=== PATIENT | female | born 1995 | race Caucasian/White ===

== ENCOUNTER 2025-04-22 13:02 | Emergency (ER) | payer MEDICAID ==
[~2025-04-22] VITALS: Ht 160 cm; Wt 54.5 kg
--- NOTE | 2025-04-22 13:12 | Physician Documentation ---
History of Present Illness Stated Complaint: VOMITING BLOOD HPI 29-year-old female and a moderate amount of distress with acute onset today in this morning abdominal pain. Initially right upper quadrant pain no pointing for the left upper quadrant and epigastric region. Endorses nausea and vomiting. No constipation or diarrhea last bowel movement yesterday periods no abdominal history of surgeries. Patient reports daily marijuana use Day of Onset: Apr 22, 2025 Medication Reconciliation Allergies: Coded Allergies: No Known Allergies (Unverified , 04/22/25) Scheduled Capsaicin 60GM Cream* (Zostrix Cream*), 1 APPLIC TOP Q12H Scheduled PRN Prochlorperazine Maleate (Compazine), 1 TAB PO QID PRN PRN for nausea Review of Systems All Other Systems at this time: Reviewed and Negative ROS As stated above in the HPI, otherwise all systems are reviewed and negative. Physical Exam Physical Exam General: Alert, no apparent distress. Respiratory: Lungs clear, no respiratory distress. Cardiovascular: Regular rate and rhythm, no murmurs. Gastrointestinal: Soft, nontender, nondistended. Bowels sounds present. Neurologic: Oriented x4. Psychiatric: Normal mood and affect. Skin: Normal color, warm and dry. No edema, no ecchymosis. General Appearance: alert, WD/WN, moderate distress Gastrointestinal: tenderness, rebound, guarding Gastrointestinal Epigastric and left upper quadrant pain with light palpation Medical Decision Making Findings After receiving medications patient has stopped vomiting. Interviewed her and she states that she is ready to go home. I advised her to stop smoking marijuana as this likely contributed to her presentation today per Differential Dx:Considerations: Include: AAA, -Complete, - Incomplete, -Inevitable, -Missed, -Threatened, Abruptio placentae, Angina/FL, Aortic dissection, Appendicitis, Bowel obstruction, Cholangitis, Cholelithasis, Constipation, Diverticular disease, Esophageal rupture, Esophagitis, Gastritis/PUD, Gastroenteritis, GI hemorrhage, Hernia, Hepatitis, Inflammatory BD, Ischemic bowel, Ovarian cyst/torsion, Pancreatitis, PID, Porphyria, Trauma, intraabdominal, Urinary obstruction, Urinary tract infection, Urolithiasis, Other Departure Disposition: HOME / SELF CARE / HOMELESS Impression: Primary Impression: Vomiting Additional Impression: Cannabis abuse Condition: Improved Discharge Instructions: Cyclic Vomiting Syndrome, Adult Referrals: NO PRIMARY CARE PROVIDER (PCP) Prescriptions Prochlorperazine Maleate (Compazine) 10 Mg Tablet 1 TAB PO QID PRN PRN for nausea, #12 TAB Prov: CARMEN CAAL [employer] LAY OUT ENGINEER 04/22/25 Capsaicin 60GM Cream* (Zostrix Cream*) 60 Gm Cream.gm. 1 APPLIC TOP Q12H for 30 Days, #60 GM Prov: CARMEN CAAL [employer] LAY OUT ENGINEER 04/22/25 Education Educated: Patient Educated regarding: diagnosis Signature Scribe Signature: hy Attestation: Scribed for Carmen Caal Tool Crib Supervisor by Carmen Caal - DANYA . 04/22/25 23:19 LORRIE URRUTIA NP Apr 22, 2025 13:12 CARMEN CAAL NP Apr 22, 2025 14:27 IZABEL VALENET MD Apr 27, 2025 15:03
[2025-04-22] MEDS ORDERED: LORazepam 2 mg/ml vial IV ONE (13:30)
[2025-04-22 13:39] LABS: BASOPHILS # (AUTO) 0.1 X10'3 (0-0.2); BASOPHILS % (AUTO) 0.7 % (0-1); EOSINOPHILS % (AUTO) 0 % (0-6); HEMATOCRIT 40.8 % (35.0-45.0); HEMOGLOBIN 13.7 g/dl (12.0-16.0); LYMPHOCYTES # (AUTO) 1.5 X10'3 (1.1-4.8); MEAN CORPUSCULAR HEMOGLOBIN 30.1 PG (27.0-31.0); MEAN CORPUSCULAR HGB CONC 33.5 g/dL (33.0-36.5); MEAN CORPUSCULAR VOLUME 89.9 FL (78-98); MEAN PLATELET VOLUME 11.2 FL (7.4-10.4); MONOCYTES # (AUTO) 0.6 X10'3 (0-0.9); MONOCYTES % (AUTO) 4.5 % (2-12); NEUTROPHILS # (AUTO) 11.5 X10'3 (1.8-7.7); NEUTROPHILS % (AUTO) 83.8 % (42-75); PLATELET COUNT 209 X10'3 (140-440); RED BLOOD COUNT 4.54 X10'6 (4.20-5.60); RED CELL DISTRIBUTION WIDTH 13.5 % (11.5-14.5); WHITE BLOOD COUNT 13.7 X10'3 (4.5-11.0)
[2025-04-22 13:47] LABS: ALANINE AMINOTRANSFERASE 33 U/L (12-78); ALBUMIN 4.7 G/DL (3.4-5.0); ALBUMIN/GLOBULIN RATIO 1.3 (1.1-1.5); ALKALINE PHOSPHATASE 48 IU/L (46-116); AMYLASE 45 U/L (25-115); ANION GAP 11 (8-16); ASPARTATE AMINO TRANSFERASE 22 U/L (10-37); BILIRUBIN,TOTAL 0.4 MG/DL (0.1-1.0); BLOOD UREA NITROGEN 17 MG/DL (7-18); BUN/CREATININE RATIO 27.4 (10.0-20.0); CALCIUM 9.2 MG/DL (8.5-10.1); CHLORIDE 103 MMOL/L (99-107); CREATININE 0.62 MG/DL (0.40-0.90); GLUCOSE 108 MG/DL (70-104); LIPASE 20 U/L (16-77); POTASSIUM 4.1 MMOL/L (3.5-5.1); SODIUM 140 MMOL/L (135-145); TOTAL CARBON DIOXIDE 25.7 MMOL/L (24-32); TOTAL PROTEIN 8.2 G/DL (6.4-8.2); eCRCL 112 ML/MIN; eGFR > 90 ML/MIN
[2025-04-22 13:48] LABS: HCG SERUM QL NEGATIVE
[2025-04-22] MEDS ORDERED: haloperidol lactate 5mg/ml inj IM ONE (14:15)
[2025-04-22] MEDS: diphenhydrAMINE 50 mg/ml inj IV ONE (14:27)
[2025-04-22] MEDS: pantoprazole 40 MG vial IV ONE (14:28)
[2025-04-22] MEDS: metoclopramide 5 mg/ml inj IV ONE (14:32)
[2025-04-22] MEDS: normal saline 1000ML IV soln IV ONE (14:45)
[2025-04-22] MEDS ORDERED: CAPS60CR6 TOP (15:29)
[2025-04-22] MEDS ORDERED: PROC-8 PO (15:29)
[2025-04-22 15:53] VITALS: BP 127/110; PULSE 60; RESP 11; TEMP 98.6; O2SAT 99
== END 2025-04-22 15:50 | disposition home or self-care (01) ==
LOC: ER 13:03
DX: R11.2 Nausea with vomiting, unspecified (principal); F12.10 Cannabis abuse, uncomplicated
CPT/HCPCS: 80053; 82150; 83690; 84703; 85025; 96361; 96374; 96375; 99284; J1200; J2470; J2765; J7030